=== PATIENT | male | born 1960 | race Caucasian/White ===

== ENCOUNTER 2021-06-23 14:57 | Observation (INO) | payer OTHER ==
[~2021-06-23] VITALS: Ht 175.3 cm; Wt 175.5 kg
[2021-06-23] MEDS ORDERED: VITAMIN D21250 MCG PO (19:41)
[2021-06-23] MEDS ORDERED: ASPIRIN EC81 MG PO (19:42)
[2021-06-23] MEDS ORDERED: ALLOPURINOL100 MG PO (19:43)
[2021-06-23] MEDS ORDERED: CLOPIDOGREL75 MG PO (19:43)
[2021-06-23] MEDS ORDERED: COLCHICINE0.6 MG PO (19:44)
[2021-06-23] MEDS ORDERED: GABAPENTIN400 MG PO (19:44)
[2021-06-23] MEDS ORDERED: FENOFIBRATE145 MG PO (19:44)
[2021-06-23] MEDS ORDERED: HYDRALAZINE HC100 MG PO (19:45)
[2021-06-23] MEDS ORDERED: HYDROCODON-ACE1 EAC6 PO (19:46)
[2021-06-23] MEDS ORDERED: NIACIN ER500 MG PO (19:47)
[2021-06-23] MEDS ORDERED: LOPRESSOR100 MG PO (19:47)
[2021-06-23] MEDS ORDERED: OMEPRAZOLE20 MG PO (19:48)
[2021-06-23] MEDS ORDERED: NIFEDIPINE ER60 M1 PO (19:48)
[2021-06-23] MEDS ORDERED: COLACE 100MG C100 MG PO (19:49)
[2021-06-24 04:55] LABS: HEMOGLOBIN 9.4 gm/dl (14.0-17.5); RED BLOOD COUNT 3.07 M/UL (4.20-5.50)
[2021-06-25 07:27] LABS: HEMOGLOBIN 9.2 gm/dl (14.0-17.5); RED BLOOD COUNT 3.14 M/UL (4.20-5.50); WHITE BLOOD COUNT 4.7 K/UL (4.5-11.0)
[2021-06-26 04:14] LABS: HEMOGLOBIN 9.6 gm/dl (14.0-17.5); RED BLOOD COUNT 3.16 M/UL (4.20-5.50); WHITE BLOOD COUNT 4.6 K/UL (4.5-11.0)
[2021-06-26] MEDS ORDERED: AUGMENTIN 875-1 EACH PO (14:27)
== END 2021-06-26 17:06 | disposition home health service (06) ==
LOC: MED SURG 4 18:57
PROVIDERS: Internal Medicine; Physician Assistant; ADMIT Internal Medicine Infectious Disease
DX: L03.115 Cellulitis of right lower limb (principal); I87.2 Venous insufficiency (chronic) (peripheral); J96.11 Chronic respiratory failure with hypoxia; E87.5 Hyperkalemia; E11.65 Type 2 diabetes mellitus with hyperglycemia; D53.9 Nutritional anemia, unspecified; I25.10 Atherosclerotic heart disease of native coronary artery without angina pectoris; E04.1 Nontoxic single thyroid nodule; I12.9 Hypertensive chronic kidney disease with stage 1 through stage 4 chronic kidney disease, or unspecified chronic kidney disease; E11.22 Type 2 diabetes mellitus with diabetic chronic kidney disease; N18.30 Chronic kidney disease, stage 3 unspecified; E66.01 Morbid (severe) obesity due to excess calories; G47.36 Sleep related hypoventilation in conditions classified elsewhere; M10.9 Gout, unspecified; E78.5 Hyperlipidemia, unspecified; M79.7 Fibromyalgia; G89.4 Chronic pain syndrome; Z91.19 Patient's noncompliance with other medical treatment and regimen; Z68.43 Body mass index [BMI] 50.0-59.9, adult; Z79.891 Long term (current) use of opiate analgesic; Z79.02 Long term (current) use of antithrombotics/antiplatelets; Z79.4 Long term (current) use of insulin; Z79.82 Long term (current) use of aspirin; Z79.899 Other long term (current) drug therapy
CPT/HCPCS: 36415; 80048; 80053; 82607; 82746; 82962; 83036; 83735; 84132; 85025; 94640; 94664; 94760; 96372; 96374; 96375; 96376; G0378; G0379; J0696; J1650; J1940; J3370; J7070